=== PATIENT | male | born 1990 | race Caucasian/White ===

== ENCOUNTER → 2016-05-27 | Day surgery (SDC) | payer OTHER ==
[~2016-05-27] MED LIST: BUPIVACAINE HCL PF 0.25% 30 ML VIAL ONE; KETOROLAC TROMETHAMINE 30 MG/ML (IVP) VIAL IV PUSH ONE; LACTATED RINGER'S 1000 ML INJ 1,000 ML ONE; MEPERIDINE HCL 50 MG/ML VIAL ONE; MIDAZOLAM HCL 2 MG/2 ML VIAL ONE; ONDANSETRON HCL 4 MG/2 ML VIAL IV PUSH ONE; PROPOFOL 200 MG/20 ML AMP IV ONE; ceFAZolin 2 GM PREMIX 50 ML ONE; oxyCODONE/ACETAMINOPHEN 5 MG/325 MG TAB ONE
--- NOTE | 2016-06-30 22:25 | MP ---
cc: AMBER COBB DATE OF SURGERY May 27, [address] Amber Cobb. DIVISION HEAD None. PREOPERATIVE DIAGNOSIS Right foot suspected peroneal brevis tear. POSTOPERATIVE DIAGNOSIS Peroneal brevis tear. PROCEDURES PERFORMED 1. Right foot peroneal brevis repair. 2. Right foot tendon graft application. 3. Right foot peroneal brevis muscle belly resection. PATHOLOGY SENT None. ANESTHESIA General. HEMOSTASIS Pneumatic thigh tourniquet AT 325 mmHg. ESTIMATED BLOOD LOSS Less than 5 ml. INJECTABLES 10 mL of 0.5% Marcaine plain. MATERIALS USED 3-0 Monocryl, 3-0 Prolene and an Arthrex tendon graft. COMPLICATIONS None INDICATIONS Mr. Dowd is a 26-year-old male patient with a history of injury to the right ankle. He had a previous surgery to address this issue where the surgeon told him he debrided some of the low lying muscle belly and some of the damaged tendon. However, the patient states that after the surgery he continued to have pain and felt as if he had made no improvement. MRI obtained before surgery was questionable for a longitudinal split in the tendon which appeared worse to my evaluation then read in the report. I explained to the patient beforehand that the only way to know for sure would be to open the skin and evaluate the tendon first hand. If there was a tear I could repair and apply a graft to strength it, or if it is a small tear the diseased tendon could be resected. The patient was agreeable to this concept. Consent was signed. The procedure was explained. No guarantees were given. PROCEDURE DETAILS Under mild sedation the patient brought into the operating room and placed on the operating table in the supine position. Following IV sedation, a pneumatic thigh tourniquet was placed around the right thigh. The leg was then scrubbed, prepped and draped in the usual aseptic manner. Attention was directed to the lateral aspect of the right ankle, posterior to the lateral malleolus where a linear longitudinal incision was created. It was deepened through the skin and subcutaneous tissue with care being taken to identify and retract any vital neurovascular structures. It was deepened through the retinaculum in order to expose peroneal brevis and the peroneal longus. The peroneal longus was examined and noted to be unaffected. The peroneal brevis was examined and noted to have a full thickness longitudinal split which extended approximately 7 inches in proximal and distal directions. The remainder the tendon appeared healthy with no additional splits. However the muscle belly was extremely low lying and was in the canal along with the neurovascular bundle. I made the decision to reflect the muscle belly distally using electrocautery. The area was then flushed with copious amounts of sterile saline and a 3-0 Monocryl was used to tubularized the tendon. The tendon was then reinforced with an Arthrex tendon graft which was sewn into place. The retinaculum was then repaired with FiberWire. The area was flushed with copious amounts of sterile saline. Deep and subcutaneous tissues were closed with 3-0 Monocryl and skin was closed with 3-0 Prolene. The pneumatic thigh tourniquet was released. There was a prompt hyperemic response to all digits of the right foot. The patient tolerated the procedure and the anesthesia well. He was placed in a well-padded posterior splint and will recover in the PACU for a period time before being discharged home with written and oral postoperative instructions. Amber PATRICIOKK /7:26 AM /10:04 PM MTDVladimir
== END | disposition home or self-care (01) ==
LOC: ESDC 09:09
PROVIDERS: ATTEND Podiatrist Foot & Ankle Surgery
DX: S86.311A Strain of muscle(s) and tendon(s) of peroneal muscle group at lower leg level, right leg, initial encounter (principal)
CPT/HCPCS: 01470; 15275; 27658; J0690; J1885; J2175; J2250; J2405; J3010; J7120; Q4122